=== PATIENT | female | born 1995 | race Caucasian/White ===

== ENCOUNTER 2017-09-25 12:00 | Emergency (ER) | payer BC ==
[2017-09-25 12:28] VITALS: BP 109/67
--- NOTE | 2017-09-25 12:53 | UC ---
Abdominal Pain Female HPI - HPI Summary HPI Summary: 22 yo female with the onset today of nausea/dry heaves/dysuria/and vaginal spotting no fever/chills has had 4 loose stools today. - History of Current Complaint Chief Complaint: UCGU Stated Complaint: NAUSEA ABD PAIN URINARY ISSUE Time Seen by Provider: 09/25/17 12:42 Hx Obtained From: Patient Hx Last Menstrual Period: 09/06/17 Onset/Duration: Gradual Onset, Lasting Hours Timing: Intermittent Episodes Lasting: - minutes Severity Initially: Moderate Severity Currently: None Pain Intensity: 0 - at present Pain Scale Used: 0-10 Numeric Location: Discrete At: LUQ Radiates: No Character: Cramping Aggravating Factor(s): Nothing Alleviating Factor(s): Nothing Associated Signs and Symptoms: Positive: Urinary Symptoms, Decreased Appetite, Vaginal Discharge - spotting, Nausea, Diarrhea. Negative: Vomiting Allergies/Adverse Reactions: Allergies Allergy/AdvReac Type Severity Reaction Status Date / Time Amoxicillin AdvReac Intermediate Vomiting Verified 09/25/17 12:28 PMH/Surg Hx/FS Hx/Imm Hx Previously Healthy: Yes Other History Of: Negative For: Anticoagulant Therapy - Surgical History Surgical History: Yes Surgery Procedure, Year, and Place: T&A, 1999, [facility] - Family History Known Family History: Positive: Hypertension - Social History Alcohol Use: Occasionally Substance Use Type: None Smoking Status (MU): Never Smoked Tobacco - Immunization History Most Recent Influenza Vaccination: none Review of Systems Constitutional: Chills Skin: Negative Eyes: Negative ENT: Negative Respiratory: Negative Cardiovascular: Negative Gastrointestinal: Abdominal Pain, Diarrhea, Nausea Genitourinary: Dysuria, Urgency, Vaginal/Penile Discharge - spotting Motor: Negative Neurovascular: Negative Musculoskeletal: Negative Neurological: Negative Psychological: Negative Is Patient Immunocompromised?: No All Other Systems Reviewed And Are Negative: Yes Physical Exam Triage Information Reviewed: Yes Appearance: Well-Appearing, No Pain Distress, Well-Nourished Vital Signs: Initial Vital Signs Temp 98.1 F 09/25/17 12:24 Pulse 83 09/25/17 12:24 Resp 16 09/25/17 12:24 BP 109/67 09/25/17 12:24 Pulse Ox 100 09/25/17 12:24 Vital Signs Reviewed: Yes Eyes: Positive: Conjunctiva Clear ENT: Positive: Hearing grossly normal. Negative: Nasal congestion, Nasal drainage, Trismus, Muffled voice, Hoarse voice Neck: Positive: Supple, Nontender, No Lymphadenopathy Respiratory: Positive: Lungs clear, Normal breath sounds, No respiratory distress, No accessory muscle use Cardiovascular: Positive: RRR Abdomen Description: Positive: Soft. Negative: Nontender - tender LUQ and LLQ abd pain Bowel Sounds: Positive: Present Musculoskeletal: Positive: ROM Intact, No Edema Neurological: Positive: Alert Psychological Exam: Normal Skin Exam: Normal Diagnostics - Laboratory Diagnostic Studies Completed/Ordered: UDIP-+++BLOOD,+++LEUKS,++PRO. UHCG (-) Abd Pain Female Course/Dx - Course Course Of Treatment: PT REFUSED PELVIC EXAM STATING SHE WISHED TO HAVE FURTHER WORK UP BY HER CORROSION CONTROL ENGINEER. I EXPLAINED THAT WE WOULD TREAT HER FOR POSSIBLE UTI BUT HER SYMPTOMS MAY BE DUE TO SERIOUS PELVIC OR INTRA ABDOMINAL PATHOLOGY. SHE IS CURRENTLY FREE OF ADB PAIN AND STATES SHE WILL SEEK FURTHER W/U WITH HER CORROSION CONTROL ENGINEER - Differential Dx/Diagnosis Provider Diagnoses: DYSURIA OF UNCERTAIN CAUSE Discharge - Discharge Plan Condition: Stable Disposition: HOME Prescriptions: Nitrofurantoin Monohyd Macro [Macrobid] 100 mg PO BID #10 cap Phenazopyridine TAB* [Pyridium TAB*] 100 mg PO TID #6 tab Patient Education Materials: Acute Abdominal Pain (ED), Dysuria (ED) Forms: *Work Release Referrals: Nataly Soto MD [Primary Care Provider] - As Soon As Possible Additional Instructions: I think that you need further investigation of your symptoms You have declined wishing to follow up with your circulation tender I will treat you for a possible UTI but I am not sure of the diagnosis due to the limited exam and testing THERE ARE MANY OTHER POSSIBLE CAUSES FOR YOUR SYMPTOMS....SOME SERIOUS please see your dental technician apprentice MAKENZIE (call today) TO ER FOR NEW OR WORSENING SYMPTOMS
--- NOTE | 2017-09-26 22:02 | UC ---
- Progress Note Progress Note: + staph Saprophyticus pt currently registered pt in ED at time of this lab review no change ravi 09/26/2012 Course/Dx - Course Course Of Treatment: PT REFUSED PELVIC EXAM STATING SHE WISHED TO HAVE FURTHER WORK UP BY HER DEPARTMENT HEAD. I EXPLAINED THAT WE WOULD TREAT HER FOR POSSIBLE UTI BUT HER SYMPTOMS MAY BE DUE TO SERIOUS PELVIC OR INTRA ABDOMINAL PATHOLOGY. SHE IS CURRENTLY FREE OF ADB PAIN AND STATES SHE WILL SEEK FURTHER W/U WITH HER DEPARTMENT HEAD
== END 2017-09-25 13:40 | disposition home or self-care (01) ==
LOC: UCEAST 12:00
DX: R30.0 Dysuria (principal); N89.8 Other specified noninflammatory disorders of vagina; R11.0 Nausea; R19.7 Diarrhea, unspecified; Z88.1 Allergy status to other antibiotic agents
CPT/HCPCS: 81003; 81025; 87077; 87086; 99212; G0463

== ENCOUNTER 2017-09-26 20:35 | Emergency (ER) | payer BC ==
[2017-09-26 22:08] LABS: ABS Basophils 0 10^3/ul (0-0.2); ABS Eosinophils 0 10^3/ul (0-0.6); ABS Lymphocytes 3.1 10^3/ul (1.0-4.8); ABS Monocytes 0.6 10^3/ul (0-0.8); ABS Neutrophils 5.5 10^3/ul (1.5-7.7); ABS Nucleated RBC 0 10^3/ul; Eosinophil % 0.5 % (0-6); Hematocrit 40 % (35-47); Hemoglobin 13.6 g/dl (12.0-16.0); Lymphocyte % 33.1 % (25-47); Mean Corpuscular HGB Conc 34 g/dl (31-36); Mean Corpuscular Hemoglobin 32 pg (27-31); Mean Corpuscular Volume 94 fL (80-97); Mean Platelet Volume 8 um3 (7.4-10.4); Nucleated Red Blood Cells % 0.1; Platelet Count 246 10^3/ul (150-450); Red Blood Count 4.25 10^6/ul (4.0-5.4); Red Cell Distribution Width 13 % (10.5-15); White Blood Count 9.2 10^3/ul (3.5-10.8)
[2017-09-27 00:37] LABS: Urine Appearance Cloudy; Urine Blood 2+ (Negative); Urine Color Amber; Urine Ketones 1+ (Negative); Urine Protein 2+(100 mg/dL) (Negative); Urine Specific Gravity 1.029 (1.010-1.030); Urine Urobilinogen Positive (Negative)
[2017-09-27] MEDS ORDERED: Ciprofloxacin 400MG IVPREMIX(* 400 MG/200 ML BAG IVPB ONE (01:28)
[2017-09-27] MEDS ORDERED: NS 0.9% 1000 ML* 1,000 ML IV ONE (01:29)
[2017-09-27] MEDS ORDERED: Ketorolac INJ* 30 MG/ML 1 ML VIAL IV PUSH ONE (02:23)
[2017-09-27] MEDS: Ondansetron INJ* 2 MG/ML VIAL IV ONE ×2 (02:23→02:47)
--- NOTE | 2017-09-27 02:41 | ED ---
GI/ HPI - HPI Summary HPI Summary: 22F presents with frequency for 2 days. She states she had worsening abdominal pain and left flank pain today. She took ibuprofen without relief. She denies any fever. She denies any vaginal discharge. She admits to nausea but denies any vomiting. She denies any diarrhea or constipation. She has never had this pain before. She denies any history of kidney stones. She did see blood in her urine yesterday. She was seen at urgent care and placed on macrobid which has helped with urgency. she states that she had extreme pain today so much so that she had to leave work early. She denies any previous abdominal surgeries. She states has had a couple uti before but never pain like this. She has no history of pyelo. - History of Current Complaint Chief Complaint: EDFlankPain Time Seen by Provider: 09/27/17 01:22 Stated Complaint: ABD PAIN/SPOTTING/NAUSEA Hx Last Menstrual Period: 09/06/17 Pain Intensity: 8 - Allergy/Home Medications Allergies/Adverse Reactions: Allergies Allergy/AdvReac Type Severity Reaction Status Date / Time Amoxicillin AdvReac Intermediate Vomiting Verified 09/25/17 12:28 PMH/Surg Hx/FS Hx/Imm Hx Endocrine/Hematology History: Denies: Hx Anticoagulant Therapy, Hx Diabetes, Hx Thyroid Disease Cardiovascular History: Denies: Hx Hypertension, Hx Pacemaker/ICD Respiratory History: Reports: Hx Asthma Denies: Hx Chronic Obstructive Pulmonary Disease (COPD) History: Denies: Hx Renal Disease Neurological History: Denies: Hx Dementia, Hx Seizures Psychiatric History: Denies: Hx Substance Abuse - Surgical History Surgery Procedure, Year, and Place: T&A, 1999, [facility] Infectious Disease History: No Infectious Disease History: Denies: Hx Hepatitis, Hx Human Immunodeficiency Virus (HIV), History Other Infectious Disease, Traveled Outside the [place] in Last 30 Days - Family History Known Family History: Positive: Hypertension - Social History Alcohol Use: Occasionally Substance Use Type: Reports: None Smoking Status (MU): Never Smoked Tobacco Review of Systems Negative: Fever Negative: Chest Pain Negative: Shortness Of Breath Positive: Abdominal Pain, Nausea. Negative: Vomiting, Diarrhea Positive: flank pain All Other Systems Reviewed And Are Negative: Yes Physical Exam Triage Information Reviewed: Yes Vital Signs On Initial Exam: Initial Vitals Temp Pulse Resp BP Pulse Ox 98 F 75 18 117/76 98 09/26/17 21:02 09/26/17 21:02 09/26/17 21:02 09/26/17 21:02 09/26/17 21:02 Vital Signs Reviewed: Yes Appearance: Positive: Well-Appearing Skin: Positive: Warm, Dry Head/Face: Positive: Normal Head/Face Inspection Eyes: Positive: Normal, Conjunctiva Clear Respiratory/Lung Sounds: Positive: Clear to Auscultation, Breath Sounds Present Cardiovascular: Positive: Normal, RRR Abdomen Description: Positive: Nontender, Soft Bowel Sounds: Positive: Present Pelvic Exam: Positive: external exam normal, speculum exam normal, bimanual exam normal, no cerv. motion tender Musculoskeletal: Positive: Normal Neurological: Positive: Normal Psychiatric: Positive: Normal Diagnostics - Vital Signs Vital Signs Temp Pulse Resp BP Pulse Ox 09/26/17 22:15 97.9 F 63 104/66 100 09/26/17 21:02 98 F 75 18 117/76 98 - Laboratory Lab Results: Lab Results 09/26/17 09/26/17 09/26/17 Range/Units 21:54 21:54 21:54 WBC 9.2 (3.5-10.8) 10^3/ul RBC 4.25 (4.0-5.4) 10^6/ul Hgb 13.6 (12.0-16.0) g/dl Hct 40 (35-47) % MCV 94 (80-97) fL MCH 32 H (27-31) pg MCHC 34 (31-36) g/dl RDW 13 (10.5-15) % Plt Count 246 (150-450) 10^3/ul MPV 8 (7.4-10.4) um3 Neut % (Auto) 59.8 (38-83) % Lymph % (Auto) 33.1 (25-47) % Whitfield % (Auto) 6.3 (1-9) % Eos % (Auto) 0.5 (0-6) % Baso % (Auto) 0.3 (0-2) % Absolute Neuts (auto) 5.5 (1.5-7.7) 10^3/ul Absolute Lymphs (auto) 3.1 (1.0-4.8) 10^3/ul Absolute Monos (auto) 0.6 (0-0.8) 10^3/ul Absolute Eos (auto) 0 (0-0.6) 10^3/ul Absolute Basos (auto) 0 (0-0.2) 10^3/ul Absolute Nucleated RBC 0 10^3/ul Nucleated RBC % 0.1 Sodium 138 (133-145) mmol/L Potassium 4.1 (3.5-5.0) mmol/L Chloride 101 (101-111) mmol/L Carbon Dioxide 30 (22-32) mmol/L Anion Gap 7 (2-11) mmol/L BUN 11 (6-24) mg/dL Creatinine 0.96 H (0.51-0.95) mg/dL Est GFR ( Amer) 92.6 (>60) Est GFR (Non-Af Amer) 72.0 (>60) BUN/Creatinine Ratio 11.5 (8-20) Glucose 88 (70-100) mg/dL Lactic Acid 0.8 (0.5-2.0) mmol/L Calcium 10.3 (8.6-10.3) mg/dL Total Bilirubin 0.50 (0.2-1.0) mg/dL AST 17 (13-39) U/L ALT 14 (7-52) U/L Alkaline Phosphatase 47 (34-104) U/L C-Reactive Protein 7.10 H (< 5.00) mg/L Total Protein 7.5 (6.4-8.9) g/dL Albumin 4.5 (3.2-5.2) g/dL Globulin 3.0 (2-4) g/dL Albumin/Globulin Ratio 1.5 (1-3) Lipase 15 (11.0-82.0) U/L Beta HCG, Quant < 0.60 mIU/mL Urine Color Urine Appearance Urine pH (5-9) Ur Specific [place] (1.010-1.030) Urine Protein (Negative) Urine Ketones (Negative) Urine Blood (Negative) Urine Nitrate (Negative) Urine Bilirubin (Negative) Urine Urobilinogen (Negative) Ur Leukocyte Esterase (Negative) Urine WBC (Auto) (Absent) Urine RBC (Auto) (Absent) Ur Squamous Epith Cells (Absent) Urine Bacteria (Absent) Urine Glucose (Negative) 09/26/17 Range/Units 23:56 WBC (3.5-10.8) 10^3/ul RBC (4.0-5.4) 10^6/ul Hgb (12.0-16.0) g/dl Hct (35-47) % MCV (80-97) fL MCH (27-31) pg MCHC (31-36) g/dl RDW (10.5-15) % Plt Count (150-450) 10^3/ul MPV (7.4-10.4) um3 Neut % (Auto) (38-83) % Lymph % (Auto) (25-47) % Whitfield % (Auto) (1-9) % Eos % (Auto) (0-6) % Baso % (Auto) (0-2) % Absolute Neuts (auto) (1.5-7.7) 10^3/ul Absolute Lymphs (auto) (1.0-4.8) 10^3/ul Absolute Monos (auto) (0-0.8) 10^3/ul Absolute Eos (auto) (0-0.6) 10^3/ul Absolute Basos (auto) (0-0.2) 10^3/ul Absolute Nucleated RBC 10^3/ul Nucleated RBC % Sodium (133-145) mmol/L Potassium (3.5-5.0) mmol/L Chloride (101-111) mmol/L Carbon Dioxide (22-32) mmol/L Anion Gap (2-11) mmol/L BUN (6-24) mg/dL Creatinine (0.51-0.95) mg/dL Est GFR ( Amer) (>60) Est GFR (Non-Af Amer) (>60) BUN/Creatinine Ratio (8-20) Glucose (70-100) mg/dL Lactic Acid (0.5-2.0) mmol/L Calcium (8.6-10.3) mg/dL Total Bilirubin (0.2-1.0) mg/dL AST (13-39) U/L ALT (7-52) U/L Alkaline Phosphatase (34-104) U/L C-Reactive Protein (< 5.00) mg/L Total Protein (6.4-8.9) g/dL Albumin (3.2-5.2) g/dL Globulin (2-4) g/dL Albumin/Globulin Ratio (1-3) Lipase (11.0-82.0) U/L Beta HCG, Quant mIU/mL Urine Color Paige Urine Appearance Cloudy Urine pH 5.0 (5-9) Ur Specific [place] 1.029 (1.010-1.030) Urine Protein 2+(100 mg/dl) H (Negative) Urine Ketones 1+ H (Negative) Urine Blood 2+ H (Negative) Urine Nitrate Positive H (Negative) Urine Bilirubin 1+ H (Negative) Urine Urobilinogen Positive H (Negative) Ur Leukocyte Esterase Negative (Negative) Urine WBC (Auto) 2+(11-20/hpf) H (Absent) Urine RBC (Auto) 3+(>10/hpf) H (Absent) Ur Squamous Epith Cells Present H (Absent) Urine Bacteria 1+ H (Absent) Urine Glucose Negative (Negative) Result Diagrams: 09/26/17 21:54 09/26/17 21:54 Lab Statement: Any lab studies that have been ordered have been reviewed, and results considered in the medical decision making process. - CT abd CT Interpretation: Positive (See Comments) - small stones bilateral kidney, several pelvic phlebloths, no obstructive uropathy CT Interpretation Completed By: Radiologist - Ultrasound No standard instances Ultrasound Interpretation: No Acute Changes Ultrasound Interpretation Completed By: Radiologist GIGU Course/Dx - Course Course Of Treatment: 22F presents with frequency for 2 days. She states she had worsening abdominal pain and left flank pain today. She took ibuprofen without relief. She denies any fever. She denies any vaginal discharge. She admits to nausea but denies any vomiting. She denies any diarrhea or constipation. She has never had this pain before. She denies any history of kidney stones. She did see blood in her urine yesterday. She was seen at urgent care and placed on macrobid which has helped with urgency. on exam has cva tenderness left. mild left sided abdominal tenderness. pelvic normal. urine shows uti. wbc normal. no fever. gave fluids and cipro. CT shows no urteral stone. will discharge with zofran and cipro. patient understand and agrees with plan. - Diagnoses Differential Diagnoses - Female: Pelvic Inflammatory Disease, Urinary Tract Infection, Ureteral Calculi Provider Diagnoses: Pyelonephritis Discharge - Discharge Plan Condition: Good Disposition: HOME Prescriptions: Ciprofloxacin TAB* [Cipro 500 MG TAB*] 500 mg PO BID #27 tab Ondansetron ODT TAB* [Zofran 4 MG Odt TAB*] 4 mg PO Q6H PRN #20 tab.odt PRN Reason: Nausea Patient Education Materials: Kidney Infection (ED) Referrals: Nataly Soto MD [Primary Care Provider] - Additional Instructions: Take antibiotic twice a day for 14 days Use Zofran every 6 hours for nausea as needed Drink plenty of water Use alternative forms of control Take Tylenol or ibuprofen every 6 hours as needed for pain and fever follow up with primary within 7 days Return to ED if develop severe vomiting, or any new or worsening symptoms
[2017-09-27 03:28] VITALS: BP 102/70
--- NOTE | 2017-09-27 08:25 | RAD ---
INDICATION: Left flank pain. Hematuria COMPARISON: None TECHNIQUE: Noncontrast axial source images were acquired from the level hemidiaphragms to the symphysis pubis as part of CT imaging for renal stone. Lung bases: The lung bases are clear. Liver: The liver is normal in size. Noncontrast imaging shows no evidence of a hepatic mass or ductal dilatation. Gallbladder: There are no calcified gallstones. The gallbladder is partially contracted. Spleen: The spleen is normal in size. The noncontrast CT appearance is normal. Pancreas: Noncontrast imaging shows no pancreatic mass or ductal dilitation. Adrenal glands: No masses are identified. Kidneys/Bladder: There are small bilateral renal calculi measuring up to approximately 5 mm. There are no definitive ureteral calculi. There are phleboliths. Noncontrast imaging shows no evidence of a renal mass. The bladder is unremarkable.. Adenopathy: There is no evidence of intraperitoneal or retroperitoneal adenopathy. Evaluation is limited without oral contrast. Fluid collections: There is trace free fluid in the cul-de-sac. Vessels: The aorta and iliac vessels are normal in caliber. There are no significant atherosclerotic changes. The IVC appears normal Pelvic organs: The uterus and adnexa appear normal GI tract: Evaluation of the bowel is limited without oral contrast. The stomach, small bowel, and lower GI tract appear grossly normal. There are no obstructive findings. There is limited evaluation of the appendix appears grossly normal. Soft tissues: No soft tissue abnormalities of the extraperitoneal abdomen or pelvis are identified. Osseous structures: There are no acute osseous findings. IMPRESSION: BILATERAL NONOBSTRUCTIVE NEPHROLITHIASIS. TRACE FREE FLUID
--- NOTE | 2017-09-27 08:29 | RAD ---
INDICATION: Left lower abdominal pain COMPARISON: None TECHNIQUE: Longitudinal and transverse transvaginal scans of the pelvis were obtained. FINDINGS: Uterus: The uterus is normal in size. There are no focal masses. The uterus measures 6.2 x 2.7 x 3.5 cm. Endometrial thickness: The endometrial thickness is measured at 0.7 cm. . Free fluid: There is no significant free fluid . Ovaries: The ovaries are normal in size. The right ovary measures 3.4 x 2.4 x 2.4 cm. The left ovary measures 3.0 x 2.5 a 2.7 cm. . Doppler interrogation demonstrates flow to each ovary. Other: None IMPRESSION: NORMAL STUDY.
== END 2017-09-27 03:29 | disposition home or self-care (01) ==
LOC: ED 20:35
DX: R10.84 Generalized abdominal pain (principal); N12 Tubulo-interstitial nephritis, not specified as acute or chronic; R11.0 Nausea
CPT/HCPCS: 36415; 74176; 76830; 80053; 81003; 81015; 83605; 83690; 84702; 85025; 86140; 87086; 87480; 87491; 87510; 87591; 87661; 96365; 96375; 99283; J0744; J1885; J2405

== ENCOUNTER 2017-11-08 08:41 | Emergency (ER) | payer BC ==
[2017-11-08 09:41] VITALS: BP 101/62
--- NOTE | 2017-11-08 10:03 | UC ---
Nausea/Vomiting/Diarrhea HPI - HPI Summary HPI Summary: Since yesterday she has had vomiting and diarrhea. SHe is almost done with keflex and is feeling better in regards to the UTI. She denies fever, blood in stool, abd pain. Seh has no hx of abd surgeries. - History of Current Complaint Chief Complaint: UCGI Stated Complaint: VOMITING Time Seen by Provider: 11/08/17 09:43 Hx Obtained From: Patient Hx Last Menstrual Period: 10/26/17 Onset/Duration: Gradual Onset, Lasting Hours Timing: Constant Severity Initially: Moderate Severity Currently: Moderate Pain Intensity: 2 Character: Not Applicable Alleviating Factor(s): Bowel Movement Nausea/Vomiting Presence: Nauseated, Vomiting Vomiting Frequency: Every 3-4 hours Diarrhea Presence: Yes Diarrhea Frequency: Every 3-4 hours Diarrhea Characteristics: Watery - Allergies/Home Medications Allergies/Adverse Reactions: Allergies Allergy/AdvReac Type Severity Reaction Status Date / Time amoxicillin Allergy Hives Verified 11/08/17 09:32 Home Medications: Home Medications Cephalexin CAP* [Keflex 500 CAP*] 11/08/17 [History] Citalopram TAB* [CeleXA TAB*] 20 mg PO DAILY 11/08/17 [History Confirmed ] Ethynodiol D-Ethinyl Estradiol [Kelnor 1-35 28 Tablet] 11/08/17 [History] PMH/Surg Hx/FS Hx/Imm Hx Previously Healthy: Yes Other History Of: Negative For: Anticoagulant Therapy - Surgical History Surgical History: Yes Surgery Procedure, Year, and Place: T&A, 1999, [facility] - Family History Known Family History: Positive: Hypertension - Social History Alcohol Use: Occasionally Substance Use Type: None Smoking Status (MU): Never Smoked Tobacco - Immunization History Most Recent Influenza Vaccination: none Review of Systems Constitutional: Negative Respiratory: Negative Gastrointestinal: Vomiting, Diarrhea Genitourinary: Negative All Other Systems Reviewed And Are Negative: Yes Physical Exam Triage Information Reviewed: Yes Appearance: Well-Appearing, No Pain Distress, Well-Nourished Vital Signs: Initial Vital Signs Temp 97.5 F 11/08/17 09:35 Pulse 72 11/08/17 09:35 Resp 16 11/08/17 09:35 BP 101/62 11/08/17 09:35 Pulse Ox 100 11/08/17 09:35 Vital Signs Reviewed: Yes Eyes: Positive: Conjunctiva Clear ENT: Positive: Normal ENT inspection Neck: Positive: Supple, Nontender, No Lymphadenopathy. Negative: Nuchal Rigidity Respiratory: Positive: Lungs clear, Normal breath sounds, No respiratory distress, No accessory muscle use. Negative: Respiratory distress, Decreased breath sounds, Accessory muscle use, Crackles, Rhonchi, Stridor, Wheezing Cardiovascular: Positive: No Murmur, Pulses Normal, Brisk Capillary Refill Abdomen Description: Positive: No Organomegaly, Soft. Negative: Distended, Guarding Musculoskeletal: Positive: ROM Intact, No Edema Neurological: Positive: Alert, Muscle Tone Normal. Negative: Fatigued Psychological: Positive: Age Appropriate Behavior Skin: Negative: rashes Naus/Vom/Diarrhea Course/Dx - Course Course Of Treatment: Exam and vitals benign. - Differential Dx/Diagnosis Provider Diagnoses: vomiting and diarrhea. Condition At Discharge: Good Discharge - Discharge Plan Condition: Good Disposition: HOME Prescriptions: Ondansetron ODT TAB* [Zofran 4 MG Odt TAB*] 4 mg PO Q8H PRN #12 tab.odt PRN Reason: Vomiting Patient Education Materials: Acute Nausea and Vomiting (ED) Forms: *Work Release Referrals: Nataly Soto MD [Primary Care Provider] -
== END 2017-11-08 10:01 | disposition home or self-care (01) ==
LOC: UCCORT 08:41
DX: R11.10 Vomiting, unspecified (principal); R19.7 Diarrhea, unspecified
CPT/HCPCS: 99212; G0463

== ENCOUNTER 2017-11-12 13:39 | Emergency (ER) | payer BC ==
[2017-11-12 14:54] VITALS: BP 123/71
[2017-11-12] MEDS ORDERED: Ondansetron ODT TAB* 4 MG PO ONE (15:17)
--- NOTE | 2017-11-12 15:18 | UC ---
Nausea/Vomiting/Diarrhea HPI - HPI Summary HPI Summary: 22 y/o female presents to the urgent care c/o nausea, 1 episode of vomiting and fever yesterday. Nausea still present. Pt reports She was Dx w/ Pyelonephritis at the [facility] and Rx Keflex which she still taking. She was also recently at the [facility] at [place] for N/V/D and was D/C home w/ Zofran PO. Yesterday she developed fever of 101F and 1 episode of nausea and vomiting. She took Zofran PO and Advil and Symptoms resolved. LMP: 11/09/2017. Pt denies SOB, chest pain, ANN, abdominal pain, diarrhea, urinary symptoms, Hx of STD's. - History of Current Complaint Chief Complaint: UCGeneralIllness Stated Complaint: NAUSEA Time Seen by Provider: 11/12/17 14:57 Hx Obtained From: Patient Hx Last Menstrual Period: 3 DAYS AGO ?: No Onset/Duration: Gradual Onset, Lasting Days - 1 day, Still Present Timing: Intermittent Episodes Lasting: Severity Initially: Mild Severity Currently: Mild Pain Intensity: 4 Pain Scale Used: 0-10 Numeric Location: Other - none Character: Not Applicable Aggravating Factor(s): Food Alleviating Factor(s): Medications Nausea/Vomiting Presence: Nauseated, Vomiting - 1 episode Vomiting Frequency: Daily Nausea/Vomiting Duration: nausea still present X 1 day Vomiting Characteristics: Nonbilious Diarrhea Presence: No - Risk Factors Influenza Risk Factors: Negative Surgical Obstruction Risk Factor(s): Negative - Allergies/Home Medications Allergies/Adverse Reactions: Allergies Allergy/AdvReac Type Severity Reaction Status Date / Time amoxicillin Allergy Hives Verified 11/12/17 14:54 PMH/Surg Hx/FS Hx/Imm Hx Previously Healthy: Yes Respiratory History: Asthma Other GI/ History: Pyelonephritis Psychological History: Depression Other History Of: Negative For: Anticoagulant Therapy - Surgical History Surgical History: Yes Surgery Procedure, Year, and Place: T&A, 1999, [facility] - Family History Known Family History: Positive: Hypertension, Diabetes - Social History Occupation: Student Lives: With Family Alcohol Use: Occasionally Substance Use Type: None Smoking Status (MU): Never Smoked Tobacco - Immunization History Most Recent Influenza Vaccination: none Vaccination Up to Date: Yes Review of Systems Constitutional: Fever, Chills Skin: Negative Eyes: Negative ENT: Negative Respiratory: Negative Cardiovascular: Negative Gastrointestinal: Vomiting, Nausea Genitourinary: Negative Motor: Negative Neurovascular: Negative Musculoskeletal: Negative Neurological: Negative Psychological: Negative Is Patient Immunocompromised?: No All Other Systems Reviewed And Are Negative: Yes Physical Exam Triage Information Reviewed: Yes Vital Signs: Initial Vital Signs Temp 98.2 F 11/12/17 14:50 Pulse 82 11/12/17 14:50 Resp 16 11/12/17 14:50 BP 123/71 11/12/17 14:50 Pulse Ox 100 11/12/17 14:50 - Additional Comments Vital Signs Reviewed: Yes General:Patient is a well developed and nourished female who is sitting comfortable in the examining table. Patient is not in any acute respiratory distress. Eyes: Positive: Conjunctiva Clear - PERRLA, EOMI, fundi grossly normal ENT: Positive: Normal ENT inspection, Hearing grossly normal, Pharynx normal, TMs normal Neck: Positive: Supple, Nontender, No Lymphadenopathy Respiratory: Positive: Chest non-tender, Lungs clear, Normal breath sounds, No respiratory distress Cardiovascular: Positive: RRR,S1 and S2 present, No Murmur, Pulses Normal, Brisk Capillary Refill Abdomen Description: Positive: Nontender, Other: - Abd: Flat with no distention. No surface trauma, scars, incisions. hyperactive bowel sounds present in all four quadrants. No tenderness, guarding, rigidity to palpation. No masses palpated, no pulsation in epigastric area. No organomegaly. Negative [place] signs. No periumbilical tenderness. No rebound in the lower quadrants. NT over McBurneys point. . Good femoral pulses bilaterally. No hernia noted. No CVAT bilaterally Musculoskeletal: Positive: Strength Intact, ROM Intact, No Edema,FROM in all major joints, no edema, no cyanosis or clubbing. Neuro: Alert and oriented x 3. No acute neurological deficits. Speech is normal. Psychological: WNL Skin: Dry and warm Naus/Vom/Diarrhea Course/Dx - Course Course Of Treatment: 22 y/o female presents to the urgent care c/o nausea, 1 episode of vomiting and fever yesterday. Nausea still present. Pt reports She was Dx w/ Pyelonephritis at the [facility] and Rx Keflex which she still taking. She was also recently at the [facility] at [place] for N/V/D and was D/ C home w/ Zofran PO. Yesterday she developed fever of 101F and 1 episode of nausea and vomiting. She took Zofran PO and Advil and Symptoms resolve. LMP: 11/09. Pt denies SOB, chest pain, ANN, abdominal pain, diarrhea, urinary symptoms , Hx of STD's. Hx obtained. PE WNL. UA and test ordered: results: negative. Pt given Zofran PO to alleviate nausea. Medication given by nurse. Pt tolerated well medication. Pt most likely w/ viral gastroenterits. Advised to increase fluid intake, eat soft meals, rest. However if symptoms worsen and abdominal pain develops to go Immediately to the ER for further management. Pt explained D/C instructions. Pt understood and agreed w/ plan of care. Pt left the clinic ambulating, A&OX3 - Differential Dx/Diagnosis Differential Diagnoses - Female: Appendicitis, Gastroenteritis (Viral), Gastroenteritis (Bacterial), Vomiting, Pyelonephritis, Gastritis, Dehydration Provider Diagnoses: 1-Acute nausea and vomiting Condition At Discharge: Stable Discharge - Discharge Plan Condition: Stable Disposition: HOME Prescriptions: Omeprazole CAP* [Prilosec CAP* 20 MG] 20 mg PO DAILY #30 cap. Ondansetron ODT TAB* [Zofran 4 MG Odt TAB*] 4 mg PO Q6H PRN #12 tab.odt PRN Reason: Vomiting Patient Education Materials: Acute Nausea and Vomiting (ED) Forms: *Work Release Referrals: Nataly Soto MD [Primary Care Provider] - 1 Week Additional Instructions: 1- Please increase fluid intake w/ Gatorade or Pedialyte OTC to avoid dehydration. Take Zofran PO only if you continue w/ nausea and vomiting. Eat soft meals. 2-Take Ompeprazole PO to alleviate symptoms 3- If you develop fever or abdominal pain w/ recurrent episodes nausea and vomiting please go immediately to the ER, for further evaluation and treatment.
== END 2017-11-12 15:50 | disposition home or self-care (01) ==
LOC: UCEAST 13:39
DX: R11.2 Nausea with vomiting, unspecified (principal); F32.9 Major depressive disorder, single episode, unspecified; J45.909 Unspecified asthma, uncomplicated; Z32.02 Encounter for pregnancy test, result negative
CPT/HCPCS: 81003; 84702; 99212; A9270-GY; G0463

== ENCOUNTER 2017-11-12 14:37 | Emergency (ER) | payer BC | END 2017-11-12 15:37 | disposition left against medical advice (07) | LOC: UCEAST 14:37 | DX: R11.0 Nausea (principal); Z53.21 Procedure and treatment not carried out due to patient leaving prior to being seen by health care provider ==

== ENCOUNTER 2018-07-13 02:01 | Inpatient (IN) | payer OTHER ==
[2018-07-13 02:34] LABS: Urine Appearance Cloudy; Urine Blood Negative (Negative); Urine Color Yellow; Urine Ketones Negative (Negative); Urine Protein Negative (Negative); Urine Red Blood Cell 2+(6-10/hpf) (Absent); Urine Specific Gravity 1.013 (1.010-1.030); Urine Urobilinogen Negative (Negative); Urine White Blood Cell 1+(6-10/hpf) (Absent)
[2018-07-13] MEDS ORDERED: ceFAZolin 2 GM PREMIX in ORs 2 GM/50 ML BAG IVPB ONE (02:37)
--- NOTE | 2018-07-13 02:51 | HP ---
General Information - General Information Maternal Age: 23 Grav: 2 Para: 0 SAB: 0 IEA: 1 Estimated Due Date: 08/24/18 Determined By: Early Ultrasound Maternal Blood Type and Rh: B Positive - Results this Serology/RPR Result: Non-Reactive Rubella Result: Immune HBsAg Result: Negative HIV Result: Negative Past Medical History Delivery History: See Records Pertinent Past Medical History: See Records Pertinent Family History: See Records - Antepartal Records Antepartal Records: Reviewed, Complicated by: - mono/di twins contractions Review of Systems Constitutional: Comfortable CV Complaint: No Respiratory: Shortness of Breath: No Gastrointestinal: No Nausea/Vomiting, Normal Bowel Movement Genitourinary: No Dysuria, No Bleeding, No Leaking Fluid Musculoskeletal: No Complaint Neurological: No Headache Movement: Normal Exam Allergies/Adverse Reactions: Allergies amoxicillin Allergy (Verified 07/03/18 19:59) Hives BP: 124/74 T : 98.4 R: 18 Lab Values - Entire Visit: Laboratory Tests 07/13/18 02:05 Urine Color Yellow Urine Appearance Cloudy Urine pH 6.0 Ur Specific [place] 1.013 Urine Protein Negative Urine Ketones Negative Urine Blood Negative Urine Nitrate Negative Urine Bilirubin Negative Urine Urobilinogen Negative Ur Leukocyte Esterase 1+ A Urine WBC (Auto) 1+(6-10/hpf) A Urine RBC (Auto) 2+(6-10/hpf) A Ur Squamous Epith Cells Present A Urine Bacteria Absent Urine Sperm Present A Urine Glucose Negative - Measurements Pre- Weight: 125 lb - Exam Breast: Breast Exam Deferred CVA: No CVA Tenderness Extremities: No Edema Heart: Normal Rhythm/Heart Sounds HEENT: No Significant Findings Lungs: Clear Bilaterally Rectal: Rectal Exam Deferred Reflexes: DTR 2+ Targeted Exam Findings Cervical Exam: 3cm Effacement: 80% Station: -1 Presenting Part: Vertex Membrane Status: Intact Bleeding/Discharge: None EFM Findings - External Monitor Findings Baseline Heart Rate: 130 External Monitor Findings: Accelerations Present, No Pattern of Variable or Late Decelerations, Variability Moderate Contractions: Regular, Mild - q 2-3 ' ctx Assessment/Plan - Assessment Pt 23 yo at 34 0/7 weeks s/p intercourse at 9 PM and has had contractions since that time. - Obstetrical Risk Factors Obstetrical Risk Factors: GBS Unknown, - Plan Plan: Observe - PT 23 yo with contractions after intercourse but with cervical dilation and effacement. Pt givne prematurity will beneift from steroids dosing for lungs. GBS sent along with urine culture, GC/ chlamydia screening. Pt givne unknown GBS status will receive Cefazolin ( PCN allergy) 2 gm load the 1 gm q 8. Will administer IV fluids and follow to see if contractions disappate.
[2018-07-13 03:41] LABS: ABS Basophils 0 10^3/ul (0-0.2); ABS Eosinophils 0.1 10^3/ul (0-0.6); ABS Lymphocytes 2.8 10^3/ul (1.0-4.8); ABS Neutrophils 14.8 10^3/ul (1.5-7.7); ABS Nucleated RBC 0 10^3/ul; Eosinophil % 0.3 % (0-6); Hematocrit 34 % (35-47); Hemoglobin 11.3 g/dl (12.0-16.0); Lymphocyte % 14.9 % (25-47); Mean Corpuscular HGB Conc 34 g/dl (31-36); Mean Corpuscular Hemoglobin 30 pg (27-31); Mean Corpuscular Volume 91 fL (80-97); Mean Platelet Volume 8.3 um3 (7.4-10.4); Nucleated Red Blood Cells % 0; Platelet Count 189 10^3/ul (150-450); Red Blood Count 3.72 10^6/ul (4.00-5.40); Red Cell Distribution Width 15 % (10.5-15); White Blood Count 18.6 10^3/ul (3.5-10.8)
[2018-07-13] MEDS: Betamethasone INJ* 6 MG/ML 5 ML VIAL (30 MG) IM SCH (04:05)
[2018-07-13] MEDS ORDERED: Metoclopramide IV* 5 MG/ML 2 ML VIAL IV ONE ×2 (08:57)
--- NOTE | 2018-07-13 11:33 | PN ---
Progress Note - Progress Note Date of Service: 07/13/18 Note: Pt at 34+0 wks with mono/di twins, presented early this AM with frequent ctx after intercourse. Ctx this AM decreased in intensity and frequency, but they have resumed at about Q2-4 min. FHT: A) 110s reactive, no decels, moderate gal, B) 120s reactive, no decels, mod gal. Cx nearly 4cm/90%/-1, bulging, tense membranes. Plan to admit and watch closely. If any cervical change or SROM, will likely proceed to C/S (pt's preferred delivery route). Will recheck cervix later if ctx persist or worsen.
--- NOTE | 2018-07-13 15:14 | PTEDU ---
Patient Name: FRIDA PAPPAS FRIDA PAPPAS selected video: Never Ever Shake a Baby to view on 07/13/2018 at 3:13:38 PM [id number]
--- NOTE | 2018-07-13 17:08 | PN ---
Progress Note - Progress Note Date of Service: 07/13/18 Note: Pt with continued contractions, but much less frequent. Still similar intensity to this AM, she reports. No LOF or significant VB. Active FMs. VS normal NST reactive x2, +accels, mod variability Cx: 4cm/90%/-1, essentially unchanged. Membranes no longer bulging. Will allow to eat light dinner, do not anticipate delivery today at this point, but that could certainly change if ctx resume. Plan to at least observe overnight, betamethasone #2 tonight.
[2018-07-13] MEDS ORDERED: Omeprazole CAP* 20 MG PO ONE (23:49)
[2018-07-14] MEDS: Betamethasone INJ* 6 MG/ML 5 ML VIAL (30 MG) IM SCH (04:09)
[2018-07-14] MEDS ORDERED: Omeprazole CAP* 20 MG PO SCH (11:00)
[2018-07-15] MEDS ORDERED: Acetaminophen TAB* 325 MG PO ONE (03:41)
[2018-07-15] MEDS ORDERED: Acetaminophen TAB* 325 MG ONE (03:49)
[2018-07-15] MEDS ORDERED: Prenatal Vitamin TAB PO SCH (09:00)
== END 2018-07-15 09:45 | disposition home or self-care (01) | DRG 563 ==
LOC: MCHOBOUT 02:01 → MCHOB 11:38
PROVIDERS: ADMIT Obstetrics & Gynecology; ATTEND Obstetrics & Gynecology
DX: O60.03 Preterm labor without delivery, third trimester (principal); Z3A.34 34 weeks gestation of pregnancy
CPT/HCPCS: 36415; 80307; 81003; 81015; 85025; 86850; 86900; 86901; 87070; 87086; 87491; 87591; A9270-GY; J0690; J0702; J2765

== ENCOUNTER 2018-07-20 22:00 | Inpatient (IN) | payer OTHER ==
[2018-07-20] MEDS ORDERED: Sodium Citrate/Citric Acid* 15 ML UDC PO ONE (23:20)
--- NOTE | 2018-07-20 23:35 | HP ---
General Information - Reason for Visit 23 yo at 35 wkks with regular contractions. was seen earlier in the week with contractions and was 4 cm 100% . received betamethasone 07/14 & 07/15 - General Information Maternal Age: 23 Grav: 2 Para: 0 SAB: 0 IEA: 1 Estimated Due Date: 08/24/18 Determined By: Early Ultrasound Maternal Blood Type and Rh: B Positive - Results this Serology/RPR Result: Non-Reactive Rubella Result: Immune HBsAg Result: Negative HIV Result: Negative GBS Culture Result: Negative Past Medical History Delivery History: See Records Pertinent Past Medical History: See Records - asthma uses inhaler 2 x aweek in / depression on no meds Review of Systems Constitutional: Uncomfortable CV Complaint: No Respiratory: Shortness of Breath: No Genitourinary: No Bleeding, No Leaking Fluid Musculoskeletal: Contractions Neurological: No Headache Movement: Normal Exam Allergies/Adverse Reactions: Allergies amoxicillin Allergy (Verified 07/13/18 03:12) Hives - Measurements Height: 4 ft 11 in Weight: 161 lb Weight in lbs: 161.559087 Body Mass Index (BMI): 32.5 Pre- Weight: 125 lb Weight Gained This : 36 lbs and 0 ozs - Exam Breast: Breast Exam Deferred Extremities: Edema - +1 Heart: Normal Rhythm/Heart Sounds HEENT: No Significant Findings Lungs: Clear Bilaterally Reflexes: DTR 2+ Targeted Exam Findings Cervical Exam: 6cm Station: -1 Presenting Part: Vertex Membrane Status: Intact EFM Findings - External Monitor Findings External Monitor Findings: Accelerations Present, Variability Moderate Contractions: Regular, Moderate, < 45 Seconds Assessment/Plan - Assessment 23 yo in labor/ pt desires elective section for delivery. She is monochorionic diamniotic. both vertex. - Obstetrical Risk Factors Risk Factors Comment: twins monochorionic in labor - Plan Plan: C/S Delivery
[2018-07-20] MEDS ORDERED: fentaNYL* 50 MCG/ML 2 ML VIAL (100 MCG VIAL) ONE (23:42)
[2018-07-20] MEDS ORDERED: Lidocaine 2% PF * 5 ML VIAL ONE (23:43)
[2018-07-20] MEDS ORDERED: ceFOXitin 2 GM IVPREMIX* 2 GM/50 ML BAG IVPB ONE (23:45)
[2018-07-20 23:54] LABS: ABS Basophils 0.1 10^3/ul (0-0.2); ABS Eosinophils 0.1 10^3/ul (0-0.6); ABS Lymphocytes 2.9 10^3/ul (1.0-4.8); ABS Monocytes 0.7 10^3/ul (0-0.8); ABS Nucleated RBC 0 10^3/ul; Eosinophil % 0.8 % (0-6); Hematocrit 34 % (35-47); Hemoglobin 11.3 g/dl (12.0-16.0); Lymphocyte % 18.4 % (25-47); Mean Corpuscular HGB Conc 34 g/dl (31-36); Mean Corpuscular Hemoglobin 30 pg (27-31); Mean Corpuscular Volume 90 fL (80-97); Mean Platelet Volume 8.2 fL (7.4-10.4); Nucleated Red Blood Cells % 0.1; Platelet Count 188 10^3/ul (150-450); Red Blood Count 3.73 10^6/ul (4.00-5.40); Red Cell Distribution Width 14 % (10.5-15); White Blood Count 15.9 10^3/ul (3.5-10.8)
[2018-07-21] MEDS ORDERED: Ondansetron INJ* 2 MG/ML VIAL ONE (00:01)
[2018-07-21] MEDS ORDERED: EPHEDrine (Pressors)* 50 MG/ML VIAL ONE (00:56)
[2018-07-21] MEDS ORDERED: Bupivacaine-MPF SPINAL* 7.5 MG/ML - 2ML AMP ONE (00:56)
[2018-07-21] MEDS ORDERED: Phenylephrine IV* 40 MCG/ML 10 ML SYRINGE ONE (00:56)
[2018-07-21] MEDS ORDERED: OXYTOCIN* 10 UNITS/ML 1 ML VIAL ONE (00:58)
[2018-07-21] MEDS ORDERED: Ondansetron INJ* 2 MG/ML VIAL IV PRN (01:01)
[2018-07-21] MEDS ORDERED: Naloxone* 0.4 MG/ML 1 ML VIAL IV PRN (01:01)
[2018-07-21] MEDS ORDERED: Ketorolac INJ* 30 MG/ML 1 ML VIAL IV PRN (01:01)
[2018-07-21] MEDS ORDERED: DiMENhydriNATE IV* 50 MG/ML VIAL IV PUSH PRN (01:01)
[2018-07-21] MEDS ORDERED: PROCHLORPERAZINE INJ 5 MG/ML 2 ML VIAL IV PRN (01:01)
[2018-07-21] MEDS ORDERED: fentaNYL* 50 MCG/ML 2 ML VIAL (100 MCG VIAL) IV PRN (01:01)
[2018-07-21] MEDS ORDERED: Acetaminophen TAB* 325 MG PO PRN ×2 (01:01→01:26)
[2018-07-21] MEDS ORDERED: HYDROcodone/ACETAMIN 5-325 MG* 1 TAB PO PRN (01:01)
[2018-07-21] MEDS ORDERED: Morphine VIAL* 4 MG/ML VIAL (1 ml vial) IV PRN (01:01)
[2018-07-21] MEDS ORDERED: Dibucaine 1% 28.35 GM TUBE PR PRN (01:26)
[2018-07-21] MEDS ORDERED: Ibuprofen TAB* 600 MG PO PRN (01:26)
[2018-07-21] MEDS ORDERED: Witch Hazel PAD* JAR TOPICAL PRN (01:26)
[2018-07-21] MEDS ORDERED: Zolpidem TAB* 5 MG PO PRN (01:26)
[2018-07-21] MEDS ORDERED: Glycerin ADULT SUPP PR PRN (01:26)
[2018-07-21] MEDS ORDERED: diPHENhydraMINE IV* 50 MG/ML 1 ml VIAL (BENADRYL) IV PRN (01:32)
[2018-07-21] MEDS ORDERED: Nalbuphine* 10 MG/ML 1 ML VIAL IV PRN (01:32)
[2018-07-21] MEDS ORDERED: Nalbuphine* 10 MG/ML 1 ML VIAL ONE (01:38)
[2018-07-21] MEDS ORDERED: PROCHLORPERAZINE INJ 5 MG/ML 2 ML VIAL ONE (01:39)
[2018-07-21] MEDS ORDERED: Oxytocin in LR* 20 UNITS/1,000 ML BAG IVPB SCH (02:00)
[2018-07-21] MEDS ORDERED: Ketorolac INJ* 30 MG/ML 1 ML VIAL ONE (02:38)
[2018-07-21] MEDS ORDERED: HYDROcodone/ACETAMIN 5-325 MG* 1 TAB ONE (03:09)
[2018-07-21] MEDS: oxyCODONE/Acetamin 5/325 MG* TAB PO PRN ×4 (07:27→21:07)
[2018-07-21] MEDS ORDERED: Ferrous Sulfate TAB* 325 MG PO SCH (09:00)
[2018-07-21] MEDS: Docusate CAP* 100 MG PO SCH ×3 (12:49→21:07)
[2018-07-21] MEDS: Simethicone TAB* 80 MG TAB.CHEW PO SCH ×4 (12:49→21:07)
[2018-07-21] MEDS: Omeprazole CAP* 20 MG PO SCH ×2 (12:49→21:07)
[2018-07-21] MEDS: Ibuprofen TAB* 600 MG PO PRN ×2 (14:53→23:07)
[2018-07-21] MEDS: Prenatal Vitamin TAB PO SCH (15:11)
--- NOTE | 2018-07-21 15:43 | OP ---
DATE OF OPERATION: 07/20/18 - ROOM #117 DATE OF : [birth year] SURGEON: Ishaan Whitfield MD. FILER FINISH: Jil Orozco CNM ANESTHESIA: Spinal with Duramorph. PRE-OP DIAGNOSIS: labor, monochorionic diamniotic twins. POST-OP DIAGNOSIS: labor, monochorionic diamniotic twins. OPERATIVE PROCEDURE: Low transverse section. COMPLICATIONS: None. ESTIMATED BLOOD LOSS: 600 cc. FINDINGS: This is a 23-year-old who had been admitted 07/14/18 and 07/15/18 with labor thought to be 4 cm but then stopped. Received betamethasone x2 doses, returned with regular contractions and dilation to 6 cm on the date of admission. At the time of , baby A was a viable female, Apgars 8 and 9, weight was 4 pounds 8 ounces; baby B was a viable female, Apgars 9 and 9 , weight was 4 pounds 12 ounces and the placenta was calcified and appeared to be a single placenta. The tubes and ovaries both appeared normal. DESCRIPTION OF PROCEDURE: The patient identified, procedure identified as a low transverse section. The patient was taken to the operating room, prepped and draped in the usual fashion in the left lateral recumbent position under spinal anesthesia. A Pfannenstiel incision was made in the abdomen and carried down through fat, fascia, and peritoneum. A transverse incision was made in the lower uterine segment, extended laterally using blunt dissection. The baby A was delivered through the incision with ease. Cord was doubly clamped and cut. The infant was handed to the awaiting boomboat operator. Baby B, the amniotic sac was ruptured with clear fluid and baby B had a nuchal cord that was looped off and then the baby was delivered with ease. Cord was doubly clamped and cut and the was handed to the awaiting boomboat operator. Cord bloods were obtained. The placenta delivered spontaneously. The uterus was wiped out with wet lap sponge. The uterus brought out through the incision. The uterine incision was closed using 0 Polysorb in a running fashion. A second layer was used to imbricate the first layer. Good hemostasis was verified. The uterus was placed back into the abdominal cavity. Good hemostasis was verified. The peritoneum was then closed using 3-0 Polysorb in a running fashion. Good hemostasis achieved in the subrectus layers and the fascia was closed using 0 Polysorb in a running fashion. Good hemostasis achieved in the subcu. Copious irrigation was utilized and suctioned out. The skin was closed with 4-0 Monocryl in a subcuticular fashion. All sponge and instrument counts were correct, and the patient returned to the recovery room in stable condition. [id number]/[facility] #: [id number] MTDD
[2018-07-22] MEDS: oxyCODONE/Acetamin 5/325 MG* TAB PO PRN ×5 (01:50→20:47)
[2018-07-22] MEDS: Ibuprofen TAB* 600 MG PO PRN ×4 (05:04→23:30)
[2018-07-22 06:23] LABS: ABS Basophils 0 10^3/ul (0-0.2); ABS Eosinophils 0.2 10^3/ul (0-0.6); ABS Lymphocytes 2.9 10^3/ul (1.0-4.8); ABS Monocytes 0.7 10^3/ul (0-0.8); ABS Neutrophils 9.6 10^3/ul (1.5-7.7); ABS Nucleated RBC 0 10^3/ul; Eosinophil % 1.1 % (0-6); Hematocrit 22 % (35-47); Hemoglobin 7.4 g/dl (12.0-16.0); Lymphocyte % 21.8 % (25-47); Mean Corpuscular HGB Conc 34 g/dl (31-36); Mean Corpuscular Hemoglobin 30 pg (27-31); Mean Corpuscular Volume 90 fL (80-97); Mean Platelet Volume 7.7 fL (7.4-10.4); Nucleated Red Blood Cells % 0.1; Platelet Count 148 10^3/ul (150-450); Red Blood Count 2.43 10^6/ul (4.00-5.40); Red Cell Distribution Width 15 % (10.5-15); White Blood Count 13.5 10^3/ul (3.5-10.8)
[2018-07-22] MEDS: Docusate CAP* 100 MG PO SCH ×3 (07:36→20:46)
[2018-07-22] MEDS: Omeprazole CAP* 20 MG PO SCH ×2 (07:36→20:47)
[2018-07-22] MEDS: Simethicone TAB* 80 MG TAB.CHEW PO SCH ×4 (07:36→20:46)
[2018-07-22] MEDS: Ferrous Gluconate TAB* 324 MG TAB PO SCH ×2 (07:36→20:46)
[2018-07-22] MEDS: Prenatal Vitamin TAB PO SCH (07:36)
[2018-07-23] MEDS: oxyCODONE/Acetamin 5/325 MG* TAB PO PRN ×5 (01:03→19:13)
[2018-07-23] MEDS: Omeprazole CAP* 20 MG PO SCH ×2 (09:01→21:04)
[2018-07-23] MEDS: Ibuprofen TAB* 600 MG PO PRN ×2 (09:01→14:00)
[2018-07-23] MEDS: Docusate CAP* 100 MG PO SCH ×3 (09:01→21:04)
[2018-07-23] MEDS: Ferrous Gluconate TAB* 324 MG TAB PO SCH ×2 (09:02→21:04)
[2018-07-23] MEDS: Simethicone TAB* 80 MG TAB.CHEW PO SCH ×4 (09:02→21:03)
[2018-07-23] MEDS: Prenatal Vitamin TAB PO SCH (09:02)
[2018-07-24] MEDS: Ibuprofen TAB* 600 MG PO PRN (07:27)
[2018-07-24] MEDS: oxyCODONE/Acetamin 5/325 MG* TAB PO PRN ×2 (07:28→11:57)
[2018-07-24 07:45] VITALS: BP 129/81
[2018-07-24] MEDS: Ferrous Gluconate TAB* 324 MG TAB PO SCH (09:31)
[2018-07-24] MEDS: Omeprazole CAP* 20 MG PO SCH (09:32)
[2018-07-24] MEDS: Docusate CAP* 100 MG PO SCH (09:32)
[2018-07-24] MEDS: Prenatal Vitamin TAB PO SCH (09:32)
[2018-07-24] MEDS: Simethicone TAB* 80 MG TAB.CHEW PO SCH (09:32)
== END 2018-07-24 12:35 | disposition home or self-care (01) | DRG 540 ==
LOC: MCHOBOUT 22:00 → MCHOB 23:23
PROVIDERS: ADMIT Obstetrics & Gynecology; ATTEND Obstetrics & Gynecology
PROC: 10D00Z1 Extraction of Products of Conception, Low, Open Approach (ICD-10-PCS; principal; 2018-07-21 00:16)
DX: O60.14X2 Preterm labor third trimester with preterm delivery third trimester, fetus 2 (principal); O60.14X1 Preterm labor third trimester with preterm delivery third trimester, fetus 1; O69.81X2 Labor and delivery complicated by cord around neck, without compression, fetus 2; O30.033 Twin pregnancy, monochorionic/diamniotic, third trimester; O90.81 Anemia of the puerperium; D64.9 Anemia, unspecified; Z3A.35 35 weeks gestation of pregnancy; Z37.2 Twins, both liveborn
CPT/HCPCS: 36415; 85025; 86850; 86900; 86901; 88307; A9270-GY; J0694; J0780; J1885; J2300; J2405; J2590; J3010

== ENCOUNTER 2019-05-27 11:39 | Emergency (ER) | payer OTHER ==
--- OUTSIDE RECORDS SUMMARY | 2019-05-27 11:46 | XMS REPORT | Continuity of Care Document ---
:1995 External Reference #:[id number] Author Name TRINITY Baeza Address [address] [place] [address] Care Team Providers Name Role Phone Nataly Soto M.D. - Internal Care Team Information [employer] Salesperson [phone] Medicine Problems Active Problems Provider Date Low back pain Ariel Chu MD Onset: 05/03/2019 Kidney stone Ariel Chu MD Onset: 05/03/2019 Social History Type Date Description Comments Sex Unknown Tobacco Use Start: Unknown Never Smoked Cigarettes Smoking Status Reviewed: 05/07/19 Never Smoked Cigarettes ETOH Use Occ Alcohol Intake Allergies, Adverse Reactions, Alerts Active Allergies Reaction Severity Comments Date Amoxicillin Abdominal pain, vomiting Severe 05/03/2019 Medications Active Medications SIG Qnty Indications Ordering Provider Date Ciprofloxacin HCL Unknown 500mg Tablets Immunizations Description No Information Available Vital Signs Date Vital Result Comment 05/07/2019 9:44am Height 60 inches 5'0" Weight 124.00 lb Weight 56.246 kg BMI (Body Mass Index) 24.2 kg/m2 BP Systolic 106 mmHg BP Diastolic 72 mmHg Heart Rate 70 /min 05/03/2019 1:24pm Height 60 inches 5'0" Weight 123.00 lb Weight 55.793 kg BMI (Body Mass Index) 24.0 kg/m2 BP Systolic 104 mmHg BP Diastolic 67 mmHg Heart Rate 86 /min Results Test Date Facility Test Result H/L Range Note 230 Ua Routine 05/07/2019 [facility] Ua Glucose Negative REF TO DR ADDRESS ON ORDER FOR (404)- - Ua Protein Negative Ua Nitrite Negative Ua Leuko Negative Ua Blood Trace-intact Ua Color Not Entered Ua Ketones Negative Ua Clarity Not Entered Ua Specific [place] 1.020 1.003-1.030 Ua PH 5.5 5.0-7.5 Ua Bilirubin Negative Ua Urobilinogen 0.2 E.U./dL 0.0-1.0 Laboratory test 05/03/2019 [facility] 230 Urine neg finding REF TO DR PRESTON ON ORDER FOR Test (332)- - Stone Eval Panel 05/03/2019 [facility] Uric Acid 4.6 mg/dL 2.6-6.[address] [place] [address] [phone] iPTH Stat 76.3 pq/mL 18.0-78.8 Basic Metabolic 05/03/2019 [facility] Creatinine 0.80 mg/dL 0.57-1.[address] [place] [address] [phone] Glucose 92.0 mg/dL Normal 70.0-99.0 Co2 23.0 mmol/L 22.0-31.0 Calcium 9.3 mg/dL 8.4-10.2 BUN 10.0 mg/dL 7.0-24.0 BUN/Creat Ratio 12.5 Na 141.0 mmol/L 136.0-145.0 K 4.2 mmol/L 3.6-5.2 Cl 106.0 mmol/L 98.0-108.0 Anion Gap 16.2 eGFR - Descent 102.9 >60.0 eGFR -- Non- Descent 84.9 >60.0 CBC Without 05/03/2019 [facility] WBC 5.8 X10*3/uL 4.1-11.[address] [place] [address] [phone] RBC 4.2 x10*6/Ul 4.0-5.4 HGB 13.3 g/dL 12.0-16.0 HCT 38.6 % 36.0-47.0 MCV 92.7 fL 79.9-95.1 MCH 31.9 pg 27.0-32.0 MCHC 34.4 g/dL 32.0-36.0 RDW 11.2 % 10.5-14.5 PLT 182.3 10*3/uL 150.0-450.0 MPV 6.6 fL Low 7.1-10.7 230 Ua Routine 05/03/2019 [facility] Ua Glucose Negative REF TO DR ADDRESS ON ORDER FOR (315)- - Ua Protein Negative Ua Nitrite Negative Ua Leuko Negative Ua Blood Trace-intact Ua Color Not Entered Ua Ketones Negative Ua Clarity Not Entered Ua Specific [place] >=1.030 1.003-1.030 Ua PH 5.5 5.0-7.5 Ua Bilirubin Negative Ua Urobilinogen 0.2 E.U./dL 0.0-1.0 Xray 05/03/2019 Outside Facility KUB NAD (315)- - Xray 05/02/2019 Outside Facility US Retroperitoneal Complete brc up to 3mm (315)- - (Kidneys/Bladder) CMP 05/01/2019 Outside Facility BUN - Urea Nitrogen 10 6-24 (315)- - Creatinine 0.77 0.51-0.95 Calcium 9.4 8.6-10.3 Alkaline Phosphatase 67 34-104 Ast (Sgot) 22 13-39 Potassium 4.2 3.5-5.0 Alt (SGPT) 23 7-52 Xray 05/01/[address] Abdomen & Pelvis W/O brc up to 2cm. (315)- - Contrast Procedures Description No Information Available Medical Devices Description No Information Available Encounters Type Date Location Provider Dx Diagnosis Office Visit 05/07/2019 [facility]/ A.MRubén Gomez, N20.0 Calculus of kidney 10:00a Urology PA Office Visit 05/03/2019 [facility]/ A.MRubén Moreau N20.0 Calculus of kidney 1:40p Urology MD Vlad M54.5 Low back pain Z32.00 Encounter for test, result unknown Assessments Date Code Description Provider 05/07/2019 N20.0 Calculus of kidney TRINITY Baeza 05/03/2019 N20.0 Calculus of kidney Ariel Chu MD 05/03/2019 Z32.00 Encounter for test, result unknown Almas Peralta MD 05/03/2019 M54.5 Low back pain Ariel Chu MD 05/03/2019 Z32.00 Encounter for test, result unknown Ariel Chu MD 05/03/2019 N20.0 Calculus of kidney Almas Peralta MD Plan of Treatment Future Appointment(s):11/14/2019 10:00 am - [facility] at [place]/ A.MErinPErin Jpkduri1011/07/2019 10:00 am - [facility] [place]/ A.M.PErin [id number] - Ariel Chu MDN20.0 Calculus of kidneyNew Labs:[facility] Adult Urine, Ordered: 05/03/19M54.5 Low back painZ32.00 Encounter for test, result unknownAllFollow up:--give stone prevention information --fax [facility] - -get KUB --f/u with PA after KUB, and prior to next Wed surgery(will schedule) Functional Status Description No Information Available Mental Status Description No Information Available Referrals Refer to Reason for Referral Status Appt Date Ariel Chu M.D. Per Hugo online, patient has active Created benefits for surgical procedures done in a hospital setting. No copay/deductible/coinsurance. Per Hugo online authorization grids, no auth required for CPT 47543,74742,98520. [facility] [address] [place] [phone]
--- OUTSIDE RECORDS SUMMARY | 2019-05-27 11:46 | XMS REPORT | Continuity of Care Document ---
:1995 External Reference #:[id number] Author Name Ariel Chu MD Address [address] [place] [address] Care Team Providers Name Role Phone Nataly Soto M.D. - Internal Care Team Information Shipping Lead [phone] Medicine Problems Active Problems Provider Date Low [...] REF TO DR ADDRESS ON ORDER FOR (415)- - Ua Protein Negative Ua Nitrite Negative Ua Leuko Negative Ua Blood Trace-intact Ua Color Not Entered Ua Ketones Negative Ua Clarity Not Entered Ua Specific [place] 1.020 1.003-1.030 Ua PH 5.5 5.0-7.5 Ua Bilirubin Negative Ua Urobilinogen 0.2 E.U./dL 0.0-1.0 Laboratory test 05/03/2019 [facility] 230 Urine neg finding REF TO DR PRESTON ON ORDER FOR Test (501)- - Stone Eval Panel 05/03/2019 [facility]diagnostic Technologist Uric Acid 4.6 mg/dL 2.6-6.[address] [place] [address] [phone] iPTH Stat 76.3 pq/mL 18.0-78.8 Basic Metabolic 05/03/2019 [facility] Neurodiagnostic Technologist Creatinine 0.80 mg/dL 0.57-1.[address] [place] [address] [phone] Glucose 92.0 mg/dL Normal 70.0-99.0 Co2 23.0 mmol/L 22.0-31.0 Calcium 9.3 mg/dL 8.4-10.2 BUN 10.0 mg/dL 7.0-24.0 BUN/Creat Ratio 12.5 Na 141.0 mmol/L 136.0-145.0 K 4.2 mmol/L 3.6-5.2 Cl 106.0 mmol/L 98.0-108.0 Anion Gap 16.2 eGFR - Descent 102.9 >60.0 eGFR -- Non- Descent 84.9 >60.0 CBC Without 05/03/2019 [facility]diagnostic Technologist WBC 5.8 X10*3/uL 4.1-11.[address] [place] [address] [phone] RBC 4.2 x10*6/Ul 4.0-5.4 HGB 13.3 g/dL [...] Negative Ua Clarity Not Entered Ua Specific [place] >=1.030 1.003-1.030 Ua PH 5.5 5.0-7.5 Ua [...] Provider Dx Diagnosis Office Visit 05/07/2019 [facility]/ Jorgito.MRubén oGmez, N20.0 Calculus of kidney 10:00a Urology PA [...] Appointment(s):11/14/2019 10:00 am - [facility] at [place]/ A.M.PErin Tyuurkg5911/07/2019 10:00 [place] A.M.P. [id number] - Lesli Gomez, PAN20.0 Calculus of kidneyNew Xrays:US Retroperitoneal, Limited, Ordered: 05/07/19Comments:CT abd/pelvis image from ER was reviewed with Dr. Chu. There are stones in bilateral kidneys but largest measuring 2 -3mm, not the 2cm that was stated on report. Advised that we no longer need to proceed with surgery. Encouraged to increase water intake to prevent worsening stone burden. Recent renal/bladder U/S again reported that largest stone is 3mm. Will recheck in 6 months with renal U/S.AllFollow up:-- Follow up in 6 months with renal U/S prior Functional Status Description No Information Available Mental Status Description No Information Available Referrals Refer to Dr Reason for Referral Status Appt Date Ariel Chu M.D. Per Hugo online, patient has active Created benefits for surgical procedures done in a hospital setting. No copay/deductible/coinsurance. Per Hugo online authorization grids, no auth required for CPT 65252,[id number]. [facility] [address] [place] [phone]
--- OUTSIDE RECORDS SUMMARY | 2019-05-27 11:46 | XMS REPORT | Continuity of Care Document ---
:1995 Author Organization [facility] Care Team Providers Name Role Phone TRINH KING Admitting Physician TRINH KING Attending Physician JOSE J FISCHER Primary Care Physician Allergies and Intolerances No Allergy Data in the System Medications No Known Medications Medications At Time Of Discharge No data in the system Problems No Data in the system Procedures No data in the system Results Radiology Results Order: ABDOMEN-SINGLE (KUB)Exam Completion Date:05/03/2019 15: 3:28 PM ABDOMEN RADIOGRAPH CLINICAL INFORMATION: pt does not have to stay CALL RESULTS [id number] -- Kidney stone COMPARISON: None. PROCEDURE: 2 supine projections of the abdomen or obtained. Majority of the left kidney was obscured by bowel gas. No mass , organ enlargement or pathologic calcification. Gastrointestinal air pattern is normal. IUD overlying the mid pelvis. The lung bases are clear. IMPRESSION : Negative KUB. Majority of the left kidney is obscured by bowel gas. END OF IMPRESSION [facility] submits Radiology results to [facility] and [facility] then provides those same results to [facility]. All results are available to [facility] and [facility] provider portal users. [facility] DICOM images are available to the [facility] provider portal users only. [facility] DICOM images are not available to the [facility] provider portal users. There is no current [facility] functionality allowing images to be available through the [facility] to [facility] connectivity. Interpreted By: Rodger Ramírez Electronically signed By: Chelsie Stanton M.D. 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 Supporting Document Name Address Phone No Directive Type 05/03/2019 3:11:35 Not Specified Not Specified Not Specified None No specified PM Encounters Encounter Diagnosis Location Date [facility] 05/03/2019 Family History Family history not obtained Functional Status No data in the system Immunizations No data in the system Medical Equipment No data in the system Mental Status No data in the system Assessment and Plan Assessments No data in the systemPlan Of Treatment No data in the systemPending Tests No data in the system Hospital Discharge Instructions No data in the system Reason for Visit No data in the system
[2019-05-27 11:49] VITALS: BP 98/58
--- NOTE | 2019-05-27 12:03 | UC ---
Neck Pain HPI - HPI Summary HPI Summary: 24 yo female presents with LEFT shoulder and neck pain. She is right handed. She tells me that on 05/20 she was shooting her bow getting ready for hunting season and on 05/22 she noticed some left shoulder pain that is worse with movement. She took some ibuprofen and had minimal relief. Since that time, pain has been persisting and she now has pain radiating up into her left trap and neck that is also worse with movement. Pain has not gotten better or worse over the last 2-3 days, but yesterday she noticed some tingling of her tongue and lips and also noticed a circular rash on her left shoulder. She recalls being bitten by a tick about 6 weeks ago on her right flank that was removed within hours she believes. She did have a lyme test about 3 weeks ago, which was negative. She denies fevers, chills, radiation of pain, numbness, weakness, vision changes, SOB, chest pain, n/v. - History of Current Complaint Chief Complaint: UCGeneralIllness Stated Complaint: SHOULDER/NECK PAIN ROOF/REMEDIOS FEEL TINGLE Time Seen by Provider: 05/27/19 12:03 Hx Obtained From: Patient Hx Last Menstrual Period: iud Onset/Duration: Gradual Onset Severity: Moderate Pain Intensity: 7 Pain Scale Used: 0-10 Numeric - Allergies/Home Medications Allergies/Adverse Reactions: Allergies Allergy/AdvReac Type Severity Reaction Status Date / Time amoxicillin Allergy Hives Verified 05/27/19 11:50 PMH/Surg Hx/FS Hx/Imm Hx - Additional Past Medical History Additional PMH: None Other History Of: Negative For: Anticoagulant Therapy - Surgical History Surgical History: None Surgery Procedure, Year, and Place: T&A, 1999, [facility] - Family History Known Family History: Positive: Hypertension - Social History Lives: With Family Alcohol Use: Occasionally Substance Use Type: None Smoking Status (MU): Never Smoked Tobacco Have You Smoked in the Last Year: No - Immunization History Most Recent Influenza Vaccination: 06/28/18 Most Recent Pneumonia Vaccination: none Review of Systems All Other Systems Reviewed And Are Negative: No Constitutional: Positive: Negative Skin: Positive: Rash Eyes: Positive: Negative ENT: Positive: Negative Respiratory: Positive: Negative Cardiovascular: Positive: Negative Gastrointestinal: Positive: Negative Genitourinary: Positive: Negative Motor: Positive: Negative Neurovascular: Positive: Negative Musculoskeletal: Positive: Other: - Left shoulder and neck pain Neurological: Positive: Negative Psychological: Positive: Negative Physical Exam - Summary Physical Exam Summary: GENERAL: NAD. WDWN. No pain distress. SKIN: LEFT SHOULDER: Large approx 15.0cm faint circular area of erythema with central clearing. No warmth, edema, tenderness, or open wounds. No streaking. HEENT: Head: AT/NC. Eyes: PERRLA. EOM intact. Conjunctiva clear without inflammation or discharge. Ears: Hearing grossly normal. TMs intact, no bulging, erythema, or edema. No Nose: Nasal mucosa pink and moist. NTTP maxillary and frontal sinus. Throat: Posterior oropharynx without exudates, erythema, or tonsillar enlargement. Uvula midline. NECK: Supple. No LAD. FROM. Negative spurlings. Mild TTP at left trapezius and left SCM. No vertebral tenderness. CHEST: CTAB. No r/r/w. No accessory muscle use. Breathing comfortably and in no distress. NO JVD or carotid bruit CV: RRR. Without m/r/g. Pulses intact. Brisk cap refill. MSK: FROM in B/L UEs and LEs with symmetric strength. LEFT SHOULDER: FROM, but pain with flexion. Strength 5/5. No edema or obvious bony deformities. Weak positive empty can. Negative cortés-ирина, neer, cardoza, and yergason tests. NEURO: A&Ox3. 3 word recall, remote, recent memory, ability to follow 2-step directions, and attention intact. CN: II: Peripheral rasmussen intact. Vision normal. III, IV, : EOMI. No nystagmus. PERRLA. V: Sensations intact and symmetric. Opens mouth and clenches teeth. VII: No facial asymmetry. Forehead wrinkles. Grins, shuts eyes, frowns, puffs cheeks. VIII: Hearing intact to finger rub. IX, X: Swallows and coughs. Uvula midline. XI: Shrugs shoulders. Turns head against resistance. XII: No tongue deviation Foobly-xp-hvvx are intact. Gait with normal base. Romberg: maintains balance, no pronator drift. Normal speech. No facial drooping. Sensations intact C4-T1 b/l UEs. PSYCH: Age appropriate behavior. Triage Information Reviewed: Yes Vital Signs: Initial Vital Signs Temp 98 F 05/27/19 11:43 Pulse 98 05/27/19 11:43 Resp 17 05/27/19 11:43 BP 133/65 05/27/19 11:43 Pulse Ox 100 05/27/19 11:43 Vital Signs Reviewed: Yes Diagnostics - Radiology XR Radiology Interpretation Completed By: Radiologist Summary of Radiographic Findings: IMPRESSION: NO ACUTE OSSEOUS INJURY. IF SYMPTOMS PERSIST, RECOMMEND REPEAT IMAGING. Neck Pain Course/Dx - Course Course Of Treatment: XR negative. Given her recent history of shooting her bow and tick bite - I suspect an MSK pathology vs lyme. Suspect RTC tendinitis and muscle strain/spasm of left shoulder. Will try her with naproxen and flexeril and have her f/u with her PCP within 1 week for a recheck Given her vague tongue intermittent tongue tingling, the overlying area of circular erythema with central clearing, and recent tick bite - lyme is certainly within the differential. Given that she was bitten 6 weeks ago, the lyme testing 3 weeks ago was likely too early to provide an accurate negative/ positive results - thus will repeat this today and treat with doxycycline. Will call her with results and if negative, may stop doxy. - Differential Dx/Diagnosis Provider Diagnosis: Left shoulder tendinitis, Tick bite Discharge ED - Sign-Out/Discharge Documenting (check all that apply): Patient Departure All imaging exams completed and their final reports reviewed: Yes - Discharge Plan Condition: Stable Disposition: HOME Prescriptions: Cyclobenzaprine TAB* [Flexeril 10 MG TAB*] 10 mg PO BID PRN #14 tab PRN Reason: Spasms DOXYcycline CAP(*) [DOXYcycline 100MG CAP(*)] 100 mg PO BID #42 cap Naproxen [Naproxen 500 mg tab] 500 mg PO BID #14 tablet. Patient Education Materials: Lyme Disease (ED), Tick Bite (ED), Rotator Cuff Tendinitis (ED) Referrals: Nataly Soto MD [Primary Care Provider] - 1 Week Additional Instructions: If you develop a fever, shortness of breath, chest pain, new or worsening symptoms - please call your PCP or go to the ED immediately. 1) May take Naproxen as an anti-inflammatory for your neck/shoulder. Do not take this with motrin/aleve/ibuprofen as these medications are related and may interact. 2) May also take the flexeril as a muscle relaxer for your neck/shoulder. This medication may make you drowsy - please do not drive while taking this medication. 3) You were tested for lyme disease today. We have also begun treatment with Doxycycline given your recent tick bite and suspicious rash on your left shoulder. I recommend that you schedule an appointment within 1 month with your primary doctor for a recheck of your symptoms. - Billing Disposition and Condition Condition: STABLE Disposition: Home
[2019-05-27 18:56] LABS: ABS Eosinophils 0.1 10^3/ul (0-0.6); ABS Lymphocytes 2.3 10^3/ul (1.0-4.8); ABS Monocytes 0.4 10^3/ul (0-0.8); ABS Neutrophils 4.9 10^3/ul (1.5-7.7); Hematocrit 36 % (35-47); Hemoglobin 12.4 g/dL (12.0-16.0); Lymphocyte % 29.9 %; Mean Corpuscular HGB Conc 35 g/dL (31-36); Mean Corpuscular Hemoglobin 32 pg (27-31); Mean Corpuscular Volume 92 fL (80-97); Mean Platelet Volume 8.6 fL (7.4-10.4); Platelet Count 225 10^3/uL (150-450); Red Blood Count 3.88 10^6 /uL (3.70-4.87); Red Cell Distribution Width 13 % (10-15); White Blood Count 7.7 10^3/uL (3.5-10.8)
== END 2019-05-27 13:22 | disposition home or self-care (01) ==
LOC: UCEAST 11:39
DX: M75.92 Shoulder lesion, unspecified, left shoulder (principal); S30.861A Insect bite (nonvenomous) of abdominal wall, initial encounter; W57.XXXA Bitten or stung by nonvenomous insect and other nonvenomous arthropods, initial encounter; Y93.9 Activity, unspecified; Y92.9 Unspecified place or not applicable; Z88.0 Allergy status to penicillin
CPT/HCPCS: 36415; 85025; 86617; 86618; 99212; G0463

== ENCOUNTER 2019-05-28 13:26 | Emergency (ER) | payer OTHER ==
--- NOTE | 2019-05-28 17:11 | ED ---
Neurological HPI - HPI Summary HPI Summary: Patient complains of left shoulder and left neck pain, left-sided facial numbness, inability to left left eyebrow, inability to completely close left eyelid starting yesterday. Patient went to urgent care yesterday was tested positive for Lyme disease and started on Doxy. States history of tick exposure 2 months ago. Tested negative for Lyme disease 3 weeks ago. Denies vision change, other neurological deficits, any other pain, injury or symptoms. Medical history is none. - History of Current Complaint Chief Complaint: EDNeurologicalDeficit Stated Complaint: SHOULDER/NECK PAIN/FACIAL NUMBNESS PER PT Time Seen by Provider: 05/28/19 16:34 Hx Obtained From: Patient, Family/Hospitality Host Hx Last Menstrual Period: iud Onset/Duration: Sudden Onset, Started hours ago Timing: Constant Onset Severity: Moderate Current Severity: Moderate Seizure Severity: Moderate Neurological Deficit Location: Facial, LUE Pain Intensity: 7 Pain Scale Used: 0-10 Numeric Character: Numbness/Tingling, Paresthesia, Paralysis - Allergy/Home Medications Allergies/Adverse Reactions: Allergies Allergy/AdvReac Type Severity Reaction Status Date / Time amoxicillin Allergy Hives Verified 05/27/19 11:50 PMH/Surg Hx/FS Hx/Imm Hx Endocrine/Hematology History: Denies: Hx Anticoagulant Therapy, Hx Diabetes, Hx Thyroid Disease Cardiovascular History: Denies: Hx Hypertension, Hx Pacemaker/ICD Respiratory History: Reports: Hx Asthma - no meds Denies: Hx Chronic Obstructive Pulmonary Disease (COPD) GI History: Denies: Hx Ulcer History: Denies: Hx Renal Disease Neurological History: Denies: Hx Dementia, Hx Seizures Psychiatric History: Reports: Hx Depression - in past Denies: Hx Substance Abuse - Surgical History Surgery Procedure, Year, and Place: T&A, 1999, [facility] - Immunization History Immunizations Up to Date: Yes Infectious Disease History: No Infectious Disease History: Denies: Hx Hepatitis, Hx Human Immunodeficiency Virus (HIV), History Other Infectious Disease, Traveled Outside the [place] in Last 30 Days - Family History Known Family History: Positive: Hypertension - Social History Alcohol Use: Occasionally Hx Substance Use: No Substance Use Type: Reports: None Hx Tobacco Use: No Smoking Status (MU): Never Smoked Tobacco Have You Smoked in the Last Year: No Review of Systems Constitutional: Negative Eyes: Negative ENT: Negative Cardiovascular: Negative Respiratory: Negative Gastrointestinal: Negative Genitourinary: Negative Musculoskeletal: Negative, Other Skin: Negative Positive: Paresthesia, Numbness Psychological: Normal All Other Systems Reviewed And Are Negative: Yes Physical Exam - Summary Physical Exam Summary: Patient unable to lift left eyebrow. Unable to close left eyelid completely. Equal sensation on bilateral cheeks. No facial droop. No tenderness to palpation of left upper extremity. No tenderness to palpation of neck. No ecchymosis, erythema, deformity, swelling noted to left upper extremity, neck, face. Neuro exam otherwise normal. Ambulating Normally. Speech coherent. Triage Information Reviewed: Yes Vital Signs On Initial Exam: Initial Vitals Temp Pulse Resp BP Pulse Ox 98.8 F 107 18 106/79 98 05/28/19 13:29 05/28/19 13:29 05/28/19 13:29 05/28/19 13:29 05/28/19 13:29 Vital Signs Reviewed: Yes Appearance: Positive: Well-Appearing Skin: Positive: Warm Head/Face: Positive: Other Eyes: Positive: Normal ENT: Positive: Normal ENT inspection Neck: Positive: Supple Respiratory/Lung Sounds: Positive: Clear to Auscultation Cardiovascular: Positive: Normal Abdomen Description: Positive: Nontender Musculoskeletal: Positive: Normal Neurological: Positive: Normal Psychiatric: Positive: Normal AVPU Assessment: Alert - Jerel Coma Scale Best Eye Response: 4 - Spontaneous Best Motor Response: 6 - Obeys Commands Best Verbal Response: 5 - Oriented Coma Scale Total: 15 Diagnostics - Vital Signs Vital Signs Temp Pulse Resp BP Pulse Ox 05/28/19 15:12 98.2 F 83 18 103/76 98 05/28/19 13:29 98.8 F 107 18 106/79 98 - Laboratory Lab Statement: Any lab studies that have been ordered have been reviewed, and results considered in the medical decision making process. Course/Dx - Course Course Of Treatment: Patient complains of left shoulder and left neck pain, left -sided facial numbness, inability to left left eyebrow, inability to completely close left eyelid starting yesterday. Patient went to urgent care yesterday was tested positive for Lyme disease and started on Doxy. States history of tick exposure 2 months ago. Tested negative for Lyme disease 3 weeks ago. Denies vision change, other neurological deficits, any other pain, injury or symptoms. Medical history is none. Signs within normal limits. Patient discussed with neurology Dr. 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 Treatment is to continue taking doxycycline. Patient and family understand and approve plan. - Diagnoses Provider Diagnoses: Neurological Lyme disease Discharge ED - Sign-Out/Discharge Documenting (check all that apply): Patient Departure Patient Received Moderate/Deep Sedation with Procedure: No - Discharge Plan Condition: Stable Disposition: HOME Patient Education Materials: Lyme Disease (ED) Referrals: Nataly Soto MD [Primary Care Provider] - Additional Instructions: Continue to take doxycycline as directed. Ibuprofen or Tylenol for headache and joint pain. Follow-up with primary care. Return to the ED for any worsening symptoms. - Billing Disposition and Condition Condition: STABLE Disposition: Home - Attestation Statements Provider Attestation: I was available for consult. This patient was seen by the ANTHONY. The patient was not presented to, seen by, or examined by me. King Araujo MD
[2019-05-28 17:34] VITALS: BP 115/67
--- NOTE | 2019-05-30 13:03 | UC ---
- Progress Note Progress Note: May 30 2019 Lyme IgG, IgM positive. Patient with Franks's Palsy, seen in ED. Patient will continue on doxycycline. No change in treatment. Patricio Gillette MD Course/Dx - Diagnoses Provider Diagnoses: Neurological Lyme disease Discharge ED - Sign-Out/Discharge Documenting (check all that apply): Post-Discharge Follow Up Patient Received Moderate/Deep Sedation with Procedure: Yes - Discharge Plan Condition: Stable Disposition: HOME Patient Education Materials: Lyme Disease (ED) Referrals: Nataly Soto MD [Primary Care Provider] - Additional Instructions: Continue to take doxycycline as directed. Ibuprofen or Tylenol for headache and joint pain. Follow-up with primary care. Return to the ED for any worsening symptoms. - Billing Disposition and Condition Condition: STABLE Disposition: Home
== END 2019-05-28 17:32 | disposition home or self-care (01) ==
LOC: ED 13:26
DX: A69.22 Other neurologic disorders in Lyme disease (principal); Z88.1 Allergy status to other antibiotic agents
CPT/HCPCS: 99282